=== PATIENT | female | born 1995 | race Caucasian/White ===

== ENCOUNTER 2018-06-06 21:07 | Emergency (ER) | payer OTHER ==
[2018-06-06 22:06] LABS: URINE BLOOD (Dip) POC Negative (NEGATIVE); URINE GLUCOSE (Dip) POC Negative (NEGATIVE); URINE KETONES (Dip) POC Negative (NEGATIVE); URINE LEUKOCYTE EST (Dip) POC Negative (NEGATIVE); URINE NITRITE (Dip) POC Negative (NEGATIVE); URINE TOTAL PROTEIN POC Negative (NEGATIVE)
[2018-06-06] MEDS: LORAZEPAM 1 MG TAB PO (22:09)
[2018-06-06 22:21] LABS: ADD MAN DIFF? NO
[2018-06-06 22:23] LABS: WHITE BLOOD COUNT 10.2 10^3/ul (4.8-10.8)
[2018-06-06 22:23] LABS: BASOPHIL # 0.1 10^3/ul (0.0-0.1); BASOPHILS % 0.5 % (0.0-2.0); EOSINOPHILS # 0.1 10^3/ul (0.0-0.5); EOSINOPHILS % 1.3 % (0.0-7.0); LYMPHOCYTES # 1.6 10^3/ul (0.8-2.9); LYMPHOCYTES % 15.6 % (18.0-55.0); MEAN CORPUSCULAR HEMOGLOBIN 31.5 pg (29.0-33.0); MEAN CORPUSCULAR HGB CONC 35.9 g/dl (32.0-37.0); MEAN CORPUSCULAR VOLUME 87.6 fl (72.0-104.0); MEAN PLATELET VOLUME 10.6 fl (7.4-10.4); MONOCYTE # 0.4 10^3/ul (0.3-0.9); NEUTROPHILS % 78.2 % (30.0-74.0); PLATELET COUNT 231 10^3/UL (140-415); RED BLOOD COUNT 4.45 10^6/ul (4.20-5.40); RED CELL DISTRIBUTION WIDTH 12.5 % (11.5-14.5)
[2018-06-06 22:41] LABS: ANION GAP 15 (8-16); BLOOD UREA NITROGEN 14 mg/dl (7-20); CALCIUM 9.4 mg/dl (8.4-10.2); CARBON DIOXIDE 25 mmol/L (21-31); CHLORIDE 102 mmol/L (97-110); CREATININE 0.78 mg/dl (0.44-1.00); GLUCOSE 108 mg/dl (70-220); SODIUM 138 mmol/L (135-144)
[2018-06-06 22:57] LABS: TROPONIN-I < 0.010 ng/ml (0.000-0.120)
== END 2018-06-06 23:51 | disposition home or self-care (01) ==
LOC: E/R 23:51
DX: F15.10 Other stimulant abuse, uncomplicated (principal); R40.2252 Coma scale, best verbal response, oriented, at arrival to emergency department; F12.10 Cannabis abuse, uncomplicated; F17.210 Nicotine dependence, cigarettes, uncomplicated; T44.905A Adverse effect of unspecified drugs primarily affecting the autonomic nervous system, initial encounter; R40.2362 Coma scale, best motor response, obeys commands, at arrival to emergency department; R40.2142 Coma scale, eyes open, spontaneous, at arrival to emergency department
CPT/HCPCS: 71045; 80048; 81003; 81025; 84484; 85025; 93005; 99285-25